=== PATIENT | male | born 1955 | race Native Hawaiian/Other Pacific Islander ===

== ENCOUNTER 2018-11-14 12:35 | Emergency (ER) | payer OTHER ==
[~2018-11-14] VITALS: Ht 182.9 cm; Wt 96.2 kg
[2018-11-14 14:00] VITALS: BP 149/85; TEMP 98.6
== END 2018-11-14 14:00 | disposition home or self-care (01) ==
LOC: ED 12:35
PROC: 2W3RX1Z Immobilization of Left Lower Leg using Splint (ICD-10-PCS; principal; 2018-11-14)
DX: S93.492A Sprain of other ligament of left ankle, initial encounter (principal); W17.2XXA Fall into hole, initial encounter
CPT/HCPCS: 96372; 99283; J1885; L4350